=== PATIENT | female | born 1965 | race Caucasian/White ===

== ENCOUNTER → 2016-06-24 | Outpatient (CLI) | payer OTHER ==
[~2016-06-24] MED LIST: CITA20TA4 PO
--- NOTE | 2016-06-24 09:05 | DIAGNOSTIC IMAGING REPORT ---
ABDOMINAL ULTRASOUND, RIGHT UPPER QUADRANT HISTORY: Right upper quadrant abdominal pain.. COMPARISON: None. FINDINGS: Pancreas: The pancreas demonstrates a normal echotexture. Liver: The liver is echogenic consistent with fatty change. Gallbladder: No gallbladder wall thickening. No gallstones. CBD: 2 mm. Right kidney: No hydronephrosis. IMPRESSION: Hepatic steatosis. Normal gallbladder. No gallstones. Electronically signed by: Jamar Arrieta M.D. 06/24/2016 9:03 AM
[2016-06-24 11:50] LABS: ALT/SGPT 38 U/L (12-78); AST/SGOT 20 U/L (15-37); BLOOD UREA NITROGEN 12 mg/dl (7-18); BUN/CREATININE RATIO 13.8 (10-20); CARBON DIOXIDE 30 mmol/L (21-32); CHLORIDE 104 mmol/L (98-107); CHOLESTEROL 244 mg/dl (0-200); CREATININE 0.86 mg/dl (0.60-1.20); GLUCOSE 94 mg/dl (70-99); POTASSIUM 4.1 mmol/L (3.5-5.1); SODIUM 141 mmol/L (136-145); TRIGLYCERIDES 285 mg/dl (0-150); VERY LOW DENSITY LIPOPROT CALC 57 mg/dl
[2016-06-24 12:02] LABS: ALKALINE PHOSPHATASE 65 U/L (45-117); CHOLESTEROL/HDL RATIO 5.5; HDL CHOLESTEROL 44 mg/dl; LDL CHOLESTEROL CALCULATED 143 mg/dl
== END | disposition home or self-care (01) ==
LOC: C.ULTRBC 08:29
PROVIDERS: ATTEND Internal Medicine Geriatric Medicine
DX: R10.11 Right upper quadrant pain (principal)

== ENCOUNTER 2018-02-12 17:43 | Emergency (ER) | payer OTHER ==
[~2018-02-12] VITALS: Ht 160 cm; Wt 71.6 kg
[2018-02-12 17:47] VITALS: Ht 160 cm; Wt 71.6 kg
[2018-02-12] MEDS ORDERED: KETOROLAC TROMETHAMINE 60 MG/2 ML VIAL IM STA (18:05)
[2018-02-12] MEDS ORDERED: CYCLOBENZAPRINE HCL 5 MG TAB PO STA (18:05)
[2018-02-12] MEDS ORDERED: LIDODERM (LIDOCAINE) PATCH 5% TD STA (18:05)
--- NOTE | 2018-02-12 18:38 | EMERGENCY ROOM VISIT NOTE ---
ED Visit Note First contact with patient: 17:53 CHIEF COMPLAINT: Low back pain HISTORY OF PRESENT ILLNESS: This 52-year-old female patient presents to the emergency department, ambulatory, complaining of pain in the low back which began at approximately 1:00 this afternoon. 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 The pain was gradual in onset , is now constant and worse with movement. The patient notes the pain as sharp and a 10/10. The patient has taken no medications for relief of the pain. The patient denies any loss of control of their bowel or bladder functions. She does report a tingling sensation radiating down both legs to the level of the knees, but There has been no leg numbness or weakness. No nausea or vomiting or abdominal pain. No chest pain or shortness of breath. The patient has not had prior back injuries. No dysuria or increased urinary frequency. REVIEW OF SYSTEMS: A 10 system review of systems was performed with positives and pertinent negatives listed in the history of present illness. All other systems were reviewed and are negative. ALLERGIES: None MEDICATIONS: Atorvastatin, Citalopram PMH: Hyperlipidemia, Anxiety/depression SOCIAL HISTORY: The patient lives locally with family. She denies drug, alcohol, tobacco use. PHYSICAL EXAM: VITALS: Vitals are noted on the nurse's note and reviewed by myself. Vital signs stable. GENERAL: This is a 52 year old white female, in no acute distress, nondiaphoretic, well-developed well-nourished. SKIN: The skin was without rashes, erythema, edema, or bruising. Capillary refill less than 2 seconds. NECK: Supple without nuchal rigidity. No cervical spine tenderness. No paraspinous muscle tenderness. HEART: Regular rate and rhythm without murmurs gallops or rubs. LUNGS: Clear to auscultation bilaterally without wheezes, rales or rhonchi. ABDOMEN: Positive bowel sounds x 4. Normal tympanic percussion. Soft, nontender, without masses or organomegaly. Us sign negative. MUSCULOSKELETAL: No muscle atrophy, erythema, or edema noted of the back. There is no tenderness over the lumbar spinous processes. There is moderate tenderness over the paraspinous muscles bilaterally. There is tenderness over the SI joint bilaterally, but R>L. There is no tenderness over the thoracic spine or paraspinous muscles. There are muscle spasms present. The patient is slow to move around with maximum tenderness with position changes. Negative bilateral straight leg raise test. NEURO: Patient was alert and oriented to person place and time. Normal sensation to light and sharp touch. Deep tendon reflexes 2+ in the lower extremities. Dorsalis pedis pulse 2+ bilaterally. Strength 5/5 and equal in the bilateral lower extremities. RADIOLOGY: L-SPINE MIN 4 VIEWS ROUTINE HISTORY: 52 years-old Female low back pain acute low back pain status post lifting injury COMPARISON: Chest radiographs 09/19/2012 TECHNIQUE: 5 views of the lumbar spine FINDINGS: Ribs at T12 are hypoplastic. No acute fracture, subluxation or significant degenerative changes. Alignment is satisfactory. Disc spaces appear preserved. Soft tissues are unremarkable. Probable phleboliths about the left hemipelvis. IMPRESSION: No acute fracture or subluxation. The above report was generated using voice recognition software. It may contain grammatical, syntax or spelling errors. Electronically signed by: Freddy Barraza M.D. 02/12/2018 6:44 PM Dictated Date/Time: 02/12/2018 6:42 PM EMERGENCY DEPARTMENT COURSE: The patient was seen and evaluated as above. She was medicated as above. I did offer narcotic analgesics and the patient declines. X-rays reviewed by myself and radiologist as above. I discussed the findings with the patient and her . She was given a home pack for Flexeril and OxyIR. Prescription for Flexeril sent to the pharmacy. Discharge instructions reviewed, patient was discharged home in good condition. I attest that I have personally reviewed the patient's current medication list. Patient was found to have normal blood pressure on screening and does not require follow-up. Etiologies such as lumbago, sciatica, cauda equina, epidural abscess, osteomyelitis, fracture, aortic disease, metastatic disease, infection, renal colic, gastrointestinal, as well as others were entertained. DIAGNOSIS: Lumbar strain The chart was completed utilizing [employer] voice recognition software. Grammatical errors, random word insertions, pronoun errors, and incomplete sentences are an occasional consequence of this system due to software limitations, ambient noise, and hardware issues. Any formal questions or concerns about the content, text, or information contained within the body of this dictation should be directly addressed to the provider for clarification. (Marychuy Braden, PAHughC) First contact with patient: 17:53 (Cesar Sebastian M.D.) Current/Historical Medications Scheduled Atorvastatin (Lipitor), 10 MG PO DAILY Citalopram Hydrobromide (Citalopram Hydrobromide), 20 MG PO HS Cyclobenzaprine Hcl (Flexeril), 10 MG PO TID Allergies Coded Allergies: No Known Allergies (Verified , 02/12/18) Vital Signs Date Time Temp Pulse Resp B/P (MAP) Pulse Ox O2 Delivery O2 Flow Rate FiO2 02/12/18 19:04 36.7 72 20 138/81 94 02/12/18 17:47 36.7 72 20 140/83 94 Room Air (Cesar Sebastian M.D.) Medications Administered Medications (Trade) Dose Ordered Sig/Rayray Route Start Time Stop Time Status Last Admin Dose Admin Lidocaine (Lidoderm Patch 5%) 1 patch NOW STAT TD 02/12/18 18:05 02/12/18 18:07 DC 02/12/18 18:05 1 PATCH Cyclobenzaprine HCl (Flexeril Tab) 10 mg NOW STAT PO 02/12/18 18:05 02/12/18 18:07 DC 02/12/18 18:05 10 MG Ketorolac Tromethamine (Toradol Inj) 60 mg NOW STAT IM 02/12/18 18:05 02/12/18 18:07 DC 02/12/18 18:05 60 MG Oxycodone HCl (Roxicodone Immediate Rel 5MG Home Pack) 1 homepack UD STAT PO 02/12/18 18:55 02/12/18 18:56 DC 02/12/18 18:55 1 HOMEPACK Cyclobenzaprine HCl (FLEXERIL 10MG Home Pack) 1 homepack UD STAT PO 02/12/18 18:55 02/12/18 18:56 DC 02/12/18 18:55 1 HOMEPACK (Cesar Sebastian M.D.) Departure Information Impression Primary Impression: Strain of lumbar region Dispostion Home / Self-Care Condition GOOD Prescriptions Cyclobenzaprine Hcl (FLEXERIL) 10 Mg Tab 10 MG PO TID, #15 TAB Prov: Marychuy Braden PA-C 02/12/18 Referrals No Doctor, Assigned (PCP) Patient Instructions ED Sprain Strain Lumbar, [facility] Additional Instructions You have been treated in the Emergency Department for Back Pain. You have received pain medicine in the emergency department which impairs your ability to operate a vehicle. It is illegal for you to drive after receiving these medicines. Oxycodone (OxyIR) 5mg: Take 1 pill every four hours as needed for breakthrough pain. Avoid alcohol, operating machinery or dangerous equipment, working on ladders or roofs, DRIVING, or situations where being under the influence may be dangerous. It is recommended to use a stool softener such as Colace, 100mg twice daily while taking this medication to avoid constipation. You have been prescribed Flexeril (cyclobenzaprine) 1 tabs orally, three times per day. Do NOT exceed 30 mg (3 tabs) per day. Take your first dose at bedtime as it can make you drowsy. Always take all medications as prescribed. Lidoderm patch should be removed in 12 hours. For pain control, you can use the following [id number] medicines (if >12 yo): Ibuprofen(Motrin, Advil) may be used for fever or pain. Use 600mg every six hours as needed. Take with food. Avoid using more than 2400mg in a 24 hour period. Do not use 2400mg per day for more than three consecutive days without physician direction. Prolonged inappropriate use can lead to stomach upset or ulcers. (AND/OR) Acetaminophen(Tylenol) may be used for fever or pain. Use 1000mg every six hours as needed. Avoid using more than 3000mg in a 24 hour period. If this is an acute injury, ice can be applied to the area of pain for the first 3 days to help decrease pain and inflammation. After the first 3 days, a heating pad can be used over the area for continued soothing relief. You should schedule a follow-up appointment in 2-3 days with your Primary Care Provider for further evaluation and treatment of your back pain. Return to the Emergency Department if your current symptoms worsen despite treatment course outlined above, or if you develop any of the following symptoms : intractable pain despite aforementioned treatment course, loss of control of your bowel or bladder, numbness or tingling in your groin, or development of a fever. Problem Qualifiers Primary Impression: Strain of lumbar region Encounter type: initial encounter Qualified Codes: S39.012A - Strain of muscle, fascia and tendon of lower back, initial encounter
[2018-02-12] MEDS ORDERED: ATOR10TA82 PO (18:41)
--- NOTE | 2018-02-12 18:45 | DIAGNOSTIC IMAGING REPORT ---
L-SPINE MIN 4 VIEWS ROUTINE HISTORY: 52 years-old Female low back pain acute low back pain status post lifting injury COMPARISON: Chest radiographs 09/19/2012 TECHNIQUE: 5 views of the lumbar spine FINDINGS: Ribs at T12 are hypoplastic. No acute fracture, subluxation or significant degenerative changes. Alignment is satisfactory. Disc spaces appear preserved. Soft tissues are unremarkable. Probable phleboliths about the left hemipelvis. IMPRESSION: No acute fracture or subluxation. The above report was generated using voice recognition software. It may contain grammatical, syntax or spelling errors. Electronically signed by: Freddy Barraza M.D. 02/12/2018 6:44 PM Dictated Date/Time: 02/12/2018 6:42 PM
[2018-02-12] MEDS ORDERED: FLEXERIL HOME PACK 10 MG VIAL PO STA (18:55)
[2018-02-12] MEDS ORDERED: OXYCODONE IR HOME PACK PO STA (18:55)
[2018-02-12] MEDS ORDERED: CYCL10TA6 PO (18:56)
[2018-02-12 19:04] VITALS: BP 138/81; PULSE 72; TEMP 36.7; O2SAT 94
== END 2018-02-12 19:05 | disposition home or self-care (01) ==
LOC: C.EDB 17:45 → C.EDD 19:05
DX: S39.012A Strain of muscle, fascia and tendon of lower back, initial encounter (principal); X50.9XXA Other and unspecified overexertion or strenuous movements or postures, initial encounter; Y93.E9 Activity, other interior property and clothing maintenance; Y99.8 Other external cause status; E78.5 Hyperlipidemia, unspecified; F32.9 Major depressive disorder, single episode, unspecified; Z79.899 Other long term (current) drug therapy